=== PATIENT | female | born 1980 | race Caucasian/White ===

== ENCOUNTER 2017-07-16 21:37 | Emergency (ER) | payer MEDICAID ==
[2017-07-16 21:40] VITALS: PULSE 71; RESP 16; TEMP 98.1; O2SAT 100
[2017-07-16] MEDS ORDERED: Lidocaine 2% Inj (20ml) SC ONE (22:11)
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
[2017-07-17] MEDS ORDERED: Oxycodone/Acetaminophen 5/325 mg Tab PO STA (00:13)
[2017-07-17 01:19] VITALS: BP 120/74
--- NOTE | 2017-07-17 10:33 | RAD ---
PROCEDURE: Left small finger radiographs. HISTORY: HAND INJURY COMPARISON: None. TECHNIQUE: AP radiograph of the left hand, as well as spot oblique and lateral images of left small finger were obtained. FINDINGS: LEFT SMALL FINGER: There is full shaft dislocation of the proximal interphalangeal joint of the 5th finger. Remainder of the left hand (as seen on the AP view) is grossly unremarkable. JOINTS: Normal. SOFT TISSUES: Normal. OTHER FINDINGS: None. IMPRESSION: Dislocation of the proximal interphalangeal joint of the 5th finger. . No evidence of acute fracture.
--- NOTE | 2017-07-17 10:38 | RAD ---
PROCEDURE: Cervical Spine Radiographs. HISTORY: Pain. COMPARISON: None. FINDINGS: BONES: Alignment maintained. No fracture. Dens Intact. DISC SPACES: Normal. SOFT TISSUES: Normal. No prevertebral soft tissue swelling. OTHER FINDINGS: None. IMPRESSION: No evidence of acute fracture or subluxation.
--- NOTE | 2017-07-17 10:40 | RAD ---
PROCEDURE: Left small finger radiographs. HISTORY: LEFT 5th digit post reduction attempt COMPARISON: Comparison is made to the previous exam. TECHNIQUE: AP radiograph of the left hand, as well as spot oblique and lateral images of left small finger were obtained. FINDINGS: LEFT SMALL FINGER: Status post reduction of the previously seen dislocation at the proximal interphalangeal joint of the 5th metatarsal bone. There is distal approximately half shaft dislocation dorsally of the distal and mid phalanx relative to the proximal phalanx. No evidence of acute fracture. Remainder of the left hand (as seen on the AP view) is grossly unremarkable. JOINTS: Normal. SOFT TISSUES: Normal. OTHER FINDINGS: None. IMPRESSION: Status post partial reduction of the previously seen proximal interphalangeal dislocation. The current study demonstrates half shaft subluxation of the middle phalanx relative to the proximal phalanx of the 5th finger.
== END 2017-07-17 01:19 ==
LOC: H.ER 21:37
DX: S63.287A Dislocation of proximal interphalangeal joint of left little finger, initial encounter (principal); Y04.0XXA Assault by unarmed brawl or fight, initial encounter